=== PATIENT | female | born 1975 | race Caucasian/White ===

== ENCOUNTER 2023-08-27 12:34 | Emergency (ER) | payer OTHER, SELFPAY ==
[2023-08-27 12:38] VITALS: BP 131/78; PULSE 87; RESP 17; TEMP 36.6; O2SAT 99; BMI 25.8
--- NOTE | 2023-08-27 13:18 | PC.NURSE ---
DR GIPSON AT BEDSIDE
--- NOTE | 2023-08-27 13:22 | XR_ITS ---
FINAL REPORT CLINICAL HISTORY: medial swelling after pop, r/o avulasion FINDINGS: Right clavicle Two views were obtained. There is no acute fracture or dislocation. There is mild AC and sternoclavicular degenerative change. No soft tissue abnormality is identified. IMPRESSION: No acute process. Reviewed, Interpreted and Dictated by Moreno Little III, MD Transcribed by Krysten Pappas Authenticated and [facility]
--- NOTE | 2023-08-27 13:22 | XR_ITS ---
FINAL REPORT CLINICAL HISTORY: AP and lateral for R swelling and pain after SCM FINDINGS: Neck soft tissue Two views were obtained. There is no acute fracture or malalignment. There are mild degenerative changes with disc osteophyte complex at C6-7. There is rightward curvature. The airway is normal. No foreign body is identified. IMPRESSION: No acute process. Reviewed, Interpreted and Dictated by Moreno Little III, MD Transcribed by Krysten Pappas Authenticated and [facility]
--- NOTE | 2023-08-27 13:29 | PC.NURSE ---
pt to XRAY by wheelchair
--- NOTE | 2023-08-27 13:30 | PC.NURSE ---
PT TO XR
--- NOTE | 2023-08-27 13:37 | HMH.EDGENADL ---
Discharge Plan Disposition Patient Disposition: Home, Self-Care Chief Complaint: Neck Pain/Injury Prescriptions Prescriptions: No Action etodolac [Lodine] 200 mg Capsule 200 mg PO DAILY Mounjaro 2.5 mg/0.5 mL Pen Injector 2.5 mg SQ WEEKLY Referrals Follow up/Referrals: Provider,Referral, [Primary Care Provider] - See instructions Activity Restrictions/Add. Instructions Additional Instructions/Restrictions: Take Tylenol 1000 mg every 6 hours (4 times daily) and ibuprofen 400 mg every 6 hours (4 times daily) as needed with food and water to prevent GI upset and kidney damage. Call your family doctor to establish care for this visit to the emergency department and schedule follow-up within 48 hours to ensure improvement. If you have any worsening of your condition or any other concerning signs or symptoms, return to the emergency department or your primary care doctor for further evaluation. Clinical Impressions Clinical Impression: Strain of sternocleidomastoid muscle Qualifiers: Encounter type: initial encounter Qualified Code(s): S16.1XXA - Strain of muscle, fascia and tendon at neck level, initial encounter Instructions Patient Instructions: DI for Neck Pain Discharge ED Provider: James Avalos General Adult HPI General Chief complaint: Neck Pain/Injury Stated complaint: WC 08/26 PAIN IN NECK, POP COLLARBONE Time Seen by Provider: 08/27/23 12:38 Mode of Arrival: Ambulatory Limitations: No Limitations Description of Symptoms (Recalled from ER Triage Doc. by RN): PT C/O RIGHT SIDED NECK PAIN AND SWELLING THAT STARTED LAST NIGHT AFTER LIFTING BOXES AT WORK History of Present Illness HPI narrative: 48-year-old female history of polysubstance abuse currently clean and not taking maintenance therapy presenting with right-sided neck pain. Patient states that she was lifting heavy boxes at work, she has been watching her lower back after previous injury and straining more prominently of her body. She states she was lifting a heavy box last night when she was straining, felt a popping sensation at the base of her neck/collarbone and had pain in the right side of her neck/jaw. No difficulty with range of motion of neck, swelling in her throat, fevers or chills, neck tenderness or stiffness, or any other concerns. Has been taking Tylenol with mild relief. Noticed that it was swelling at the base of the right clavicle today, so came to the ER for further evaluation. Related Data Home Medications Medication Instructions Recorded Confirmed etodolac 200 mg capsule 200 mg PO DAILY 08/27/23 08/27/23 tirzepatide 2.5 mg/0.5 mL 2.5 mg SQ WEEKLY 08/27/23 08/27/23 subcutaneous pen injector (Mounjaro) Allergies Allergy/AdvReac Type Severity Reaction Status Date / Time No Known Allergies Allergy Verified 08/27/23 12:45 [facility] Disclaimer: The information contained in this section may have been updated after the patient was seen, as this information can be updated by other users. Medical History (Updated 08/27/23 @ 14:16 by James Avalos MD) Diabetes Social History Smoking Status: Never smoker alcohol intake: never current occupational status: employed Travel in the last 8 weeks: None ROS Obtained: Yes All systems reviewed & no additional complaints except as documented Physical Exam General General appearance: alert and in no apparent distress Head Head exam: atraumatic and normocephalic Eye Eye exam: Present normal appearance, PERRL and EOMI ENT ENT exam: Present mucous membranes moist Neck Neck exam: Present normal inspection, full ROM, trachea midline and other (Swelling at medial aspect of right clavicle and origin point of sternocleidomastoid. Tenderness along muscle body to base of skull.) Respiratory Respiratory exam: Absent respiratory distress, wheezes, stridor, accessory muscle use or prolonged expiratory phase Cardiovascular Cardiovascular exam: Present norm
[2023-08-27 14:44] VITALS: BP 125/91; PULSE 81; RESP 18; TEMP 36.7; O2SAT 99
== END 2023-08-27 14:45 | disposition home or self-care (01) ==
PROVIDERS: Emergency Provider Emergency Medicine
DX: S16.1XXA Strain of muscle, fascia and tendon at neck level, initial encounter (principal); R22.1 Localized swelling, mass and lump, neck; E11.9 Type 2 diabetes mellitus without complications; Z79.85 Long-term (current) use of injectable non-insulin antidiabetic drugs; X50.0XXA Overexertion from strenuous movement or load, initial encounter
CPT/HCPCS: 70360; 73000; 99283